=== PATIENT | male | born 1960 | race Caucasian/White ===

== ENCOUNTER 2016-05-07 11:50 | Outpatient (CLI) | payer MEDICARE, MEDICAID ==
[2016-05-07 12:49] LABS: ALT (SGPT) 23 U/L (0-55); AST (SGOT) 20 U/L (5-34); Alkaline Phosphatase 73 U/L (40-150); Anion Gap 12 mmol/L (10-20); BUN (Urea Nitrogen) 11 mg/dL (8.4-25.7); Bilirubin, Total 0.5 mg/dL (0.2-1.2); Calc. Creatinine Clearance 0 mL/min (70-130); Calcium 9.5 mg/dL (7.8-10.44); Carbon Dioxide 27 mmol/L (22-29); Chloride 103 mmol/L (98-107); Estimated GFR-MDRD 84; Globulin 3.1 g/dL (2.4-3.5); LDL Cholesterol, Calculated 122 mg/dL; Protein, Total 7.5 g/dL (6.0-8.3)
[2016-05-07 13:28] LABS: #Basophils 0.1 thou/uL (0.0-0.2); #Eosinphils 0.1 thou/uL (0.0-0.7); #Lymphocytes 3.4 thou/uL (1.20-3.40); #Monocytes 0.5 thou/uL (0.11-0.59); #Neutrophils 3.8 thou/uL (1.40-6.50); %Basophils 1.5 % (0.0-1.0); %Eosinophils 1.6 % (0.0-10.0); %Lymphocytes 42.7 % (21.0-51.0); %Monocytes 6.3 % (0.0-10.0); Hematocrit 54.2 % (42.0-52.0); Mean Platelet Volume 6.8 fL (7.4-10.4); Red Blood Cell (RBC) Count 6.08 mill/uL (4.70-6.10)
[2016-05-07 13:40] LABS: Hemoglobin A1c 5.4 % (4.0-6.0)
== END 2016-05-07 11:51 | disposition home or self-care (01) ==
LOC: NAV LAB 11:50
DX: E11.9 Type 2 diabetes mellitus without complications (principal); D64.9 Anemia, unspecified; E03.9 Hypothyroidism, unspecified; E78.2 Mixed hyperlipidemia; N40.1 Benign prostatic hyperplasia with lower urinary tract symptoms; E29.1 Testicular hypofunction; G56.00 Carpal tunnel syndrome, unspecified upper limb
CPT/HCPCS: 36415; 80053; 80061; 82607; 82746; 83036; 84403; 84436; 84443; 84479; 85025; G0103

== ENCOUNTER 2018-04-22 10:43 | Outpatient (CLI) | payer MEDICARE, MEDICAID ==
--- NOTE | 2018-04-22 12:31 | RAD ---
RIGHT HIP AP AND FROGLEG VIEWS: HISTORY: Bilateral hip pain. FINDINGS: Two views of the right hip demonstrate no evidence of right hip fractures, subluxations, or bony lesi ons. IMPRESSION: Normal two views right hip. POS: [facility]
--- NOTE | 2018-04-22 12:32 | RAD ---
LEFT HIP TWO VIEWS: HISTORY: Hip pain. TECHNIQUE: AP and frogleg views of the left hip are obtained. FINDINGS: Two views of the left hip demonstrate some osteophytes seen along the lateral aspect of the acetabulu m, compatible with osteoarthritis. No evidence of acute fractures, subluxations, or bony lesions see n. IMPRESSION: Acetabular osteoarthritic changes. No acute left hip abnormality seen. POS: [facility]
== END 2018-04-22 10:44 | disposition home or self-care (01) ==
LOC: NAV RAD 10:43
DX: M25.551 Pain in right hip (principal); M25.552 Pain in left hip; M16.12 Unilateral primary osteoarthritis, left hip

== ENCOUNTER 2024-11-24 10:23 | Outpatient (CLI) | payer OTHER | END 2024-11-24 10:24 | disposition home or self-care (01) | LOC: NAV RAD 10:23 | DX: M25.571 Pain in right ankle and joints of right foot (principal); S82.831A Other fracture of upper and lower end of right fibula, initial encounter for closed fracture ==

== ENCOUNTER 2024-12-01 09:25 | Emergency (ER) | payer OTHER | END 2024-12-01 11:30 | disposition home or self-care (01) | LOC: NAV ERS 09:25 | DX: S82.61XA Displaced fracture of lateral malleolus of right fibula, initial encounter for closed fracture (principal); I25.10 Atherosclerotic heart disease of native coronary artery without angina pectoris; Z95.5 Presence of coronary angioplasty implant and graft; Z79.899 Other long term (current) drug therapy; W19.XXXA Unspecified fall, initial encounter | CPT/HCPCS: 99283 ==